=== PATIENT | male | born 1945 | race Caucasian/White ===

== ENCOUNTER 2016-08-20 09:53 | Emergency (ER) | payer OTHER, MEDICARE ==
[2016-08-20 10:02] VITALS: TEMP 98; BMI 29.3
[2016-08-20] MEDS ORDERED: cloNIDine HCL 0.1 MG TABLET PO ONE (10:12)
[2016-08-20] MEDS ORDERED: cloNIDine HCL 0.1 MG TABLET ONE (10:15)
--- NOTE | 2016-08-20 10:17 | PDOC ---
History of Present Illness - General Chief Complaint: Blood Pressure Problem Stated Complaint: HTN Time Seen by Provider: 08/20/16 09:55 History Source: Care Provider (Patient brought in by nurse from [facility] when the scheduled catarct surgery was canceled because of high blood pressure preop.), Other (Patient stated that despite the fact his doctor, Dr Uday Torres prescribed his medications to be taken twice a day, the patient decided to tke them once a day for quite a while.) Exam Limitations: No Limitations - History of Present Illness Timing/Duration: unsure, constant Severity: moderate, severe Modifying Factors: improves with: medication Associated Symptoms: reports: denies symptoms Past History - Travel Traveled outside of the country in the last 30 days: No Close contact w/someone who was outside of country & ill: No - Past Medical History Allergies/Adverse Reactions: Allergies Allergy/AdvReac Type Severity Reaction Status Date / Time No Known Drug Allergies Allergy Verified 08/20/16 09:54 Home Medications: Ambulatory Orders Aspirin [ASA -] 81 mg PO HS 08/19/16 Atenolol [Tenormin] 50 mg PO BID 08/19/16 Losartan Potassium [Cozaar] 100 mg PO DAILY 08/19/16 Metformin HCl 850 mg PO BID 08/19/16 Oxybutynin Chloride 5 mg PO TID 08/19/16 Anemia: No Asthma: No Cancer: No Cardiac Disorders: No CVA: No COPD: No CHF: No Dementia: No Diabetes: Yes (DIAG 2006) GI Disorders: No Disorders: Yes (BPH) HTN: Yes Hypercholesterolemia: No Liver Disease: No Seizures: No Thyroid Disease: No Other medical history: Catarcts both eyes - Surgical History Abdominal Surgery: Yes (INGUINAL HERNIA ) Appendectomy: No Cardiac Surgery: No Cholecystectomy: No Lung Surgery: No Neurologic Surgery: No Orthopedic Surgery: No - Psycho/Social/Smoking Cessation Hx Anxiety: No Suicidal Ideation: No Smoking History: Never smoked Have you smoked in the past 12 months: No Hx Alcohol Use: Yes Drug/Substance Use Hx: No Substance Use Type: Alcohol Hx Substance Use Treatment: No Review of Systems - Review of Systems Able to Perform ROS?: Yes Is the patient limited [place] proficient: Yes Constitutional: No: Symptoms Reported, See HPI, Chills, Diaphoresis, Fever, Loss of Appetite, Malaise, Night Sweats, Weakness, Weight Stable, Unintentional Wgt. Loss, Unexplained wgt Loss, Other HEENTM: Yes: Other (Progressively decreased vision (sec to cataracts ?!)) Respiratory: No: Symptoms reported, See HPI, Cough, Orthopnea, Shortness of Breath, SOB with Exertion, SOB at Rest, Stridor, Wheezing, Productive cough, Hemoptysis, Other Cardiac (ROS): No: Symptoms Reported, See HPI, Chest Pain, Edema, Irregular Heart Rate, Lightheadedness, Palpitations, Syncope, Chest Tightness, Other ABD/GI: No: Symptoms Reported, See HPI, Abdominal Distended, Abd. Pain w/ defecation, Blood Streaked Bowels, Constipated, Diarrhea, Difficulty Swallowing , Nausea, Poor Appetite, Poor Fluid Intake, Rectal Bleeding, Vomiting, Indigestion, Abdominal cramping, Tarry Stools, Other All Other Systems: Reviewed and Negative *Physical Exam - Vital Signs Last Vital Signs Temp Pulse Resp BP Pulse Ox 98 F 60 18 206/71 100 08/20/16 09:54 08/20/16 09:54 08/20/16 09:54 08/20/16 09:54 08/20/16 09:54 - Physical Exam General Appearance: Yes: Nourished, Appropriately Dressed. No: Apparent Distress HEENT: positive: Normal ENT Inspection, Normal Voice, Hearing Grossly Normal, Other (Left pupil dilated (sec to preop dilatation at [facility] earlier)) Neck: positive: Supple Respiratory/Chest: positive: Lungs Clear Cardiovascular: positive: Regular Rate, S1, S2 Gastrointestinal/Abdominal: positive: Soft Lymphatic: negative: Adenopathy Musculoskeletal: positive: Normal Inspection Extremity: positive: Normal Capillary Refill, Normal Inspection, Normal Range of Motion Integumentary: positive: Normal Color, Dry, Warm Neurologic: positive: skiff operator II-XII NML intact, Fully Oriented, Alert, Normal Mood/ Affect Heart Score/ECG Review - ECG Intrepretation Rhythm: Regular Rhythm - [place] White [place]: Left [place] Deviation - P and WA Delta Wave(s) Present: No WPW: No - QRS Increased Voltage: Precordial Leads - ST and T Flattened T Waves: Yes ED Treatment Course - LABORATORY CBC & Chemistry Diagram: 08/20/16 10:46 08/20/16 10:46 Medical Decision Making - Medical Decision Making Patient seen immediately from arrival, orders placed in, Medication prescribed' Observed every 30 minutes for 2 1/2 hours . Improving BP progressively, feeling good. Discussed with patient and family present here about the importance of medication and all together of life style in DMand Hypertension 08/20/16 12:46 *DC/Admit/Observation/Transfer Diagnosis at time of Disposition: Hypertension Qualifiers: Hypertension type: essential hypertension Qualified Code(s): I10 - Essential ( primary) hypertension - Discharge Dispostion Disposition: HOME Condition at time of disposition: Improved Admit: No - Referrals Referrals: Uday Torres MD, MD [Primary Care Provider] - - Patient Instructions Printed Discharge Instructions: DI for High Blood Pressure Additional Instructions: Take medications daily as advised by your doctor. Take your lab reports with you to your doctors
[2016-08-20 11:14] LABS: MCH 31.2 pg (25.7-33.7); MCHC 33.5 g/dl (32.0-35.9); MEAN CELL VOLUME 93.1 fl (80-96); MEAN PLT VOLUME 9.4 fl (7.5-11.1); PLATELET COUNT 248 K/MM3 (134-434); RDW 12.3 % (11.9-15.9); WHITE BLOOD COUNT 10.2 K/mm3 (4.0-10.0)
[2016-08-20 11:28] LABS: ALK PHOS 62 U/L (32-92); ANION GAP 7 (8-16); BILIRUBIN,TOTAL 1.9 mg/dl (0.2-1.0); CALCIUM 9.3 mg/dl (8.4-10.2); CO2 28 mmol/L (22-28); CREATININE 0.7 mg/dl (0.6-1.3); GLUCOSE,RANDOM 128 mg/dl (74-106); SGOT/AST 21 U/L (10-42); SGPT/ALT 22 U/L (10-40)
[2016-08-20 12:29] VITALS: BP 156/61; PULSE 62
[2016-08-20 13:31] LABS: INR 0.99 (0.82-1.09); PROTHROMBIN TIME (PATIENT) 11.1 SEC (10.2-13.0)
--- NOTE | 2016-08-21 13:58 | EKG ---
Test Reason : Blood Pressure : / mmHG Vent. Rate : 055 BPM Atrial Rate : 055 BPM P-R Int : 186 ms QRS Dur : 094 ms QT Int : 418 ms P-R-T Axes : 004 029 259 degrees QTc Int : 399 ms SINUS BRADYCARDIA LEFT VENTRICULAR HYPERTROPHY WITH REPOLARIZATION ABNORMALITY NO PREVIOUS ECGS AVAILABLE Confirmed by MD JOSE MARTIN, JOANN ([id number]) on 08/21/2016 1:57:44 PM Referred By: DR MONTILLA Confirmed By:JOANN PHILIPPE MD
== END 2016-08-20 12:49 | disposition home or self-care (01) ==
LOC: FER 09:53
DX: I10 Essential (primary) hypertension (principal); E11.9 Type 2 diabetes mellitus without complications; N40.0 Benign prostatic hyperplasia without lower urinary tract symptoms; Z79.84 Long term (current) use of oral hypoglycemic drugs; Z79.82 Long term (current) use of aspirin
CPT/HCPCS: 36415; 80053; 85025; 85610; 93005; 99282-25

== ENCOUNTER → 2016-08-20 | Day surgery (SDC) | payer OTHER, MEDICARE ==
[2016-08-19 11:02] VITALS: BMI 29.2
[~2016-08-20] MED LIST: CIPROFLOXACIN 0.3% EYE DROPS 5 ML BOTTLE ONE; CYCLOPENTOLATE 2% OPHTH SOLN 2 ML BOTTLE ONE; LIDOCAINE 1% P/F 10 MG/ML VIAL ONE; MIDAZOLAM HCL 2 MG/2 ML SINGLE DOSE VIAL ONE; PHENYLEPHRINE 2.5% OPHTH SOLN 15 ML BOTTLE ONE; TROPICAMIDE 1% OPHTH SOLN 15 ML BOTTLE ONE
[2016-08-20 09:40] VITALS: BP 232/70; PULSE 58; TEMP 98.6
== END | disposition home or self-care (01) ==
LOC: FASU 08:20
PROVIDERS: ATTEND Ophthalmology
PROC: 08RK3JZ Replacement of Left Lens with Synthetic Substitute, Percutaneous Approach (ICD-10-PCS; principal; 2016-08-20)
DX: H26.8 Other specified cataract (principal); Z53.09 Procedure and treatment not carried out because of other contraindication

== ENCOUNTER 2016-09-03 06:58 | Day surgery (SDC) | payer OTHER, MEDICARE ==
[2016-09-01 13:59] VITALS: BMI 28.8
[2016-09-03] MEDS ORDERED: LIDOCAINE 1% P/F 10 MG/ML VIAL ONE (07:33)
[2016-09-03] MEDS ORDERED: CARBACHOL 0.01% INTRA-OCULAR 1.5 ML VIAL ONE (07:33)
[2016-09-03] MEDS ORDERED: BSS (NA/CA/MG/K) BALANCED SALT SOLUTION OPHTH SOLN 15 ML BOTTLE ONE (07:33)
[2016-09-03 07:49] VITALS: TEMP 98
[2016-09-03] MEDS: CYCLOPENTOLATE 2% OPHTH SOLN 2 ML BOTTLE ONE ×3 (08:00→08:10)
[2016-09-03] MEDS: CIPROFLOXACIN 0.3% EYE DROPS 5 ML BOTTLE ONE ×3 (08:00→08:10)
[2016-09-03] MEDS: TROPICAMIDE 1% OPHTH SOLN 15 ML BOTTLE ONE ×3 (08:00→08:10)
[2016-09-03] MEDS: PHENYLEPHRINE 2.5% OPHTH SOLN 15 ML BOTTLE ONE ×3 (08:00→08:10)
[2016-09-03 10:17] VITALS: BP 152/56; PULSE 74
[2016-09-03] MEDS ORDERED: ACETAMINOPHEN 325 MG TABLET (FP) PO PRN (16:38)
[2016-09-03] MEDS ORDERED: ONDANSETRON 4 MG/2 ML VIAL IVPUSH PRN (16:38)
[2016-09-03] MEDS ORDERED: LACTATED RINGERS SOLUTION 1,000 ML IV SCH (16:45)
--- NOTE | 2016-09-03 19:56 | OP ---
DATE OF PROCEDURE: 09/03/2016 OPERATIVE PROCEDURE: Lens Phacoemulsification with Posterior Chamber Intraocular Lens Placement Left Eye PREOPERATIVE DIAGNOSIS: Visually Significant Cataract of Left Eye POSTOPERATIVE DIAGNOSIS: Visually Significant Cataract of Left Eye SURGEON: Bertin Mack M.D. ANESTHESIA: [facility] [place] ANESTHESIOLOGIST: PROCEDURE: The patient was brought to the operating room and placed under monitored anesthesia care by Anesthesia. A drop of Tetracaine was then placed over the left eye. The patient was then prepped and draped in the usual sterile manner. A speculum was then placed over the left eye. The eye was then well irrigated with copious amounts of BSS (balanced salt solution). The operating microscope was then moved into position. A paracentesis was performed using a 15 degree blade. At this point 0.5 mL of 1% preservative-free lidocaine was injected into the anterior chamber. Amvisc plus was then injected into the anterior chamber. A clear corneal incision was then formed using a 2.2 mm keratome. A capsulorrhexis was then performed in a continuous circular fashion beginning with a cystotome, completed with an Utratas forceps. Hydrodissection was then performed using BSS on a cannula. The phaco probe was then introduced through the corneal wound and the cataract was removed using the phaco chop technique. Approximately 3 seconds of absolute phaco time was used. The remaining cortex was then removed using irrigation and aspiration with an I/A probe. The capsule was then filled with regular Amvisc and the capsule was noted to be intact. A previously selected foldable posterior chamber intraocular lens was then injected into the capsule through the corneal wound using a lens injector. It was then dialed into position using a Sinskey hook. The Amvisc was then removed using irrigation and aspiration. Miostat was then injected through the paracentesis to constrict the pupil. The paracentesis and corneal wound were then hydrated and noted to be water tight. A drop of Maxitrol was then placed over the eye. The speculum was removed and clear shield was taped over the eye. The patient tolerated the procedure well and there were no surgical complications. The patient was asked to follow up in my office the next day. BERTIN MACK M.D. [id number]
== END 2016-09-03 10:15 | disposition home or self-care (01) ==
LOC: FASU 06:58
PROVIDERS: ATTEND Ophthalmology
PROC: 08RK3JZ Replacement of Left Lens with Synthetic Substitute, Percutaneous Approach (ICD-10-PCS; principal; 2016-09-03 09:03)
DX: H26.8 Other specified cataract (principal)

== ENCOUNTER 2016-09-17 08:05 | Day surgery (SDC) | payer OTHER, MEDICARE ==
[2016-09-15 13:03] VITALS: BMI 28.8
[2016-09-17] MEDS ORDERED: PHENYLEPHRINE 2.5% OPHTH SOLN 15 ML BOTTLE ONE (08:36)
[2016-09-17] MEDS ORDERED: TROPICAMIDE 1% OPHTH SOLN 15 ML BOTTLE ONE (08:36)
[2016-09-17] MEDS ORDERED: CIPROFLOXACIN 0.3% EYE DROPS 5 ML BOTTLE ONE (08:36)
[2016-09-17] MEDS ORDERED: CYCLOPENTOLATE 2% OPHTH SOLN 2 ML BOTTLE ONE (08:36)
[2016-09-17] MEDS ORDERED: MIDAZOLAM HCL 2 MG/2 ML SINGLE DOSE VIAL ONE (10:48)
[2016-09-17 11:22] VITALS: TEMP 99
[2016-09-17 11:41] VITALS: BP 165/81; PULSE 60
--- NOTE | 2016-09-18 11:12 | OP ---
DATE OF OPERATION: 09/17/2016 OPERATIVE PROCEDURE: Lens phacoemulsification with posterior chamber intraocular lens placement, right eye. PREOPERATIVE DIAGNOSIS: Visually significant cataract of right eye. POSTOPERATIVE DIAGNOSIS: Visually significant cataract of right eye. SURGEON: Bertin Mack MD ANESTHESIA: MAC. PROCEDURE: The patient was brought to the operating room and placed under monitored anesthesia care by Anesthesia. A drop of Tetracaine was then placed over the right eye. The patient was then prepped and draped in the usual sterile manner. A speculum was then placed over the right eye. The eye was then well irrigated with copious amounts of BSS (balanced salt solution). The operating microscope was then moved into position. A paracentesis was performed using a 15-degree blade. At this point, 0.5 mL of 1% preservative-free lidocaine was injected into the anterior chamber. Amvisc plus was then injected into the anterior chamber. A clear corneal incision was then formed using a 2.2-mm keratome. A capsulorrhexis was then performed in a continuous circular fashion beginning with a cystotome completed with a Utrata forceps. Hydrodissection was then performed using BSS on a cannula. The phaco probe was then introduced through the corneal wound and the cataract was removed using the phaco chop technique. Approximately 3 seconds of absolute phaco time was used. The remaining cortex was then removed using irrigation and aspiration with an I/A probe. The capsule was then filled with regular Amvisc and the capsule was noted to be intact. A previously selected foldable posterior chamber intraocular lens was then injected into the capsule through the corneal wound using a lens injector. It was then dialed into position using a Sinskey hook. The Amvisc was then removed using irrigation and aspiration. Miostat was then injected through the paracentesis to constrict the pupil. The paracentesis and corneal wound were then hydrated and noted to be watertight. A drop of Maxitrol was then placed over the eye. The speculum was removed and clear shield was taped over the eye. The patient tolerated the procedure well and there were no surgical complications. The patient was asked to follow up in my office the next day. BERTIN MACK M.D. [id number]
== END 2016-09-17 11:45 | disposition home or self-care (01) ==
LOC: FASU 08:05
PROVIDERS: ATTEND Ophthalmology
PROC: 08RJ3JZ Replacement of Right Lens with Synthetic Substitute, Percutaneous Approach (ICD-10-PCS; principal; 2016-09-17 10:54)
DX: H26.8 Other specified cataract (principal)

== ENCOUNTER 2016-09-17 09:36 | Emergency (ER) | payer OTHER, MEDICARE ==
[2016-09-17 09:41] VITALS: TEMP 98.8; BMI 28.8
--- NOTE | 2016-09-17 10:03 | PDOC ---
History of Present Illness - General Chief Complaint: Blood Pressure Problem Stated Complaint: HTN Time Seen by Provider: 09/17/16 09:42 - History of Present Illness Initial Comments: 09/17/16 09:57 80-year-old male with a history of hypertension and AODM, and cataracts He initially came in on 08/20/16 for cataract surgery, and while in preop, his blood pressure was found to be high and he was sent to the emergency department and evaluated His surgery was canceled at that time He states that since that time he has been taking all of his blood pressure medications as directed (Tenormin, losartan, and amlodipine), and has been keeping a blood pressure log, and checking his blood pressure daily at home He states that his blood pressure has been very good at home on his blood pressure log, and he states that he took all 3 blood pressure medications as directed this morning prior to coming in for preop for his cataract surgery He states this morning he took his blood pressure at home before leaving home, and his systolic was 135 He has not gotten his eyedrops yet up in a SCU in preparation for his cataract surgery, when they measured his blood pressure to be 200/123, and sent him to the emergency department He denies any headache or chest pain or shortness of breath He denies any recent intercurrent illnesses He states he's been taking his blood pressure medications as directed He has not taken any [id number] cough or cold preparations, or any other [id number] medications On recheck of blood pressure as soon as he had got settled in the emergency department, his repeat blood pressure is 118/93 Patient states he feels fine at this time Past History - Past Medical History Allergies/Adverse Reactions: Allergies Allergy/AdvReac Type Severity Reaction Status Date / Time No Known Drug Allergies Allergy Verified 09/17/16 09:37 Home Medications: Ambulatory Orders Atenolol [Tenormin] 50 mg PO BID 08/19/16 Losartan Potassium [Cozaar] 100 mg PO DAILY 08/19/16 Metformin HCl 850 mg PO BID 08/19/16 Amlodipine Besylate 5 mg PO DAILY 09/01/16 Aspirin Coated [Ecotrin -] 81 mg PO DAILY 09/15/16 Atenolol [Tenormin -] 50 mg PO BID 09/17/16 Anemia: No Asthma: No Cancer: No Cardiac Disorders: No CVA: No COPD: No CHF: No Dementia: No Diabetes: Yes (DIAG 2006-TAKING METFORMIN ONCE DAILY INSTEAD OF BID) GI Disorders: No Disorders: Yes (BPH) HTN: Yes Hypercholesterolemia: No Liver Disease: No Seizures: No Thyroid Disease: No - Surgical History Abdominal Surgery: Yes (INGUINAL HERNIA ) Appendectomy: No Cardiac Surgery: No Cholecystectomy: No Lung Surgery: No Neurologic Surgery: No Orthopedic Surgery: No - Psycho/Social/Smoking Cessation Hx Anxiety: No Suicidal Ideation: No Smoking History: Never smoked Have you smoked in the past 12 months: No Information on smoking cessation initiated: No Hx Alcohol Use: No Drug/Substance Use Hx: No Substance Use Type: Alcohol Hx Substance Use Treatment: No *Physical Exam - Vital Signs Last Vital Signs Temp Pulse Resp BP Pulse Ox 98.8 F 55 L 18 118/93 99 09/17/16 09:39 09/17/16 09:45 09/17/16 09:45 09/17/16 09:45 09/17/16 09:45 - Physical Exam Comments: 09/17/16 09:59 Physical exam Last Vital Signs Temp Pulse Resp BP Pulse Ox 98.8 F 55 L 18 118/93 99 09/17/16 09:39 09/17/16 09:45 09/17/16 09:45 09/17/16 09:45 09/17/16 09:45 GENERAL: The patient is awake, alert, and fully oriented, and in no apparent distress. HEAD: Normal with no signs of trauma. EYES: sclera anicteric, conjunctiva are normal. ENT: Moist mucous membranes. NECK: Normal range of motion, supple LUNGS: Breath sounds equal, clear to auscultation bilaterally. No wheezes, and no crackles. HEART: Regular rate and rhythm, normal S1 and S2 without murmur, rub or gallop. ABDOMEN: Soft, nontender, normoactive bowel sounds. No guarding, no rebound. No masses appreciated. EXTREMITIES: Normal range of motion, no edema. No clubbing or cyanosis. No cords, erythema, or tenderness. NEUROLOGICAL: Cranial nerves II through XII grossly intact. Normal speech, normal gait. PSYCH: Normal mood, normal affect. SKIN: Warm, Dry, normal turgor, no rashes or lesions noted. Medical Decision Making - Medical Decision Making 09/17/16 10:00 Most likely white coat hypertension component in the preop setting, although his blood pressure has otherwise been under excellent control at home on his medications, and his blood pressure now as soon as he came down to the emergency department came down to 118/93 Dr. Sawyer at bedside, discussed with Dr. Sawyer Will take patient back to the [facility], and continue preop for planned cataract surgery today Preop eyedrops placed by Dr. Sawyer No need for EKG, or workup as per Dr. Sawyer (was all done on 08/20 visit) 09/17/16 10:06 repeat BP 130/90 on manual cuff with anaesthesia and Dr Sawyer at bedside - will return to [facility] to prep for proceedure *DC/Admit/Observation/Transfer Diagnosis at time of Disposition: Elevated blood pressure reading, Hypertension - Discharge Dispostion Condition at time of disposition: Stable - Patient Instructions Additional Instructions: You are to go directly to [facility] to continue your preop Continue taking your blood pressure medications as you are doing, and continue to monitor your blood pressure at home
[2016-09-17 10:09] VITALS: BP 130/90; PULSE 64
== END 2016-09-17 10:10 | disposition home or self-care (01) ==
LOC: FER 09:36
DX: I10 Essential (primary) hypertension (principal); E11.9 Type 2 diabetes mellitus without complications
CPT/HCPCS: 99281-25